=== PATIENT | female | born 1985 ===

== ENCOUNTER 2018-06-16 14:52 | Inpatient (IN) | payer OTHER ==
[2018-06-16] MEDS ORDERED: Sodium Chloride 0.9% 10 ML Syringe FLUSH PRN (15:56)
[2018-06-16] MEDS ORDERED: Ondansetron 4 MG/2 ML SDV IVPUSH PRN ×2 (15:56→18:47)
[2018-06-16] MEDS ORDERED: Nalbuphine 20 MG/ML 1 ML Syringe IVPUSH PRN (15:56)
[2018-06-16] MEDS ORDERED: Oxytocin/Lactated Ringers 10 UNIT/1,000 ML BAG IV SCH ×3 (16:00→16:30)
[2018-06-16] MEDS: Lactated Ringers 1,000 ML IV SCH ×3 (16:22→19:54)
[2018-06-16] MEDS ORDERED: ePHEDrine 50 MG/ML SDV IVPUSH PRN (18:47)
[2018-06-16] MEDS ORDERED: fentaNYL 100 MCG/2 ML SDV EPIDUR PRN (18:47)
--- NOTE | 2018-06-16 18:49 | PCM.PREANE ---
Preanesthetic Assessment - Anesthesia/Transfusion/Family Hx Anesthesia History: No Prior Anesthesia Family History of Anesthesia Reaction: No Transfusion History: No Prior Transfusion(s) Intubation History: Unknown - Review of Systems General: No Symptoms Pulmonary: No Symptoms Cardiovascular: No Symptoms Gastrointestinal: No Symptoms (GERD) Neurological: No Symptoms, Numbness (left hip numbness only with due to pinched nerve.) Other: Reports: None, Diabetes (gestational DM/diet controlled) - Physical Assessment NPO Status Date: 06/16/18 NPO Status Time: 18:00 Pulse: 80 O2 Sat by Pulse Oximetry: 99 Respiratory Rate: 16 Blood Pressure: 109/67 Temperature: 36.4 C Vital Signs: Last Vital Signs Temp 36.4 C 06/16/18 15:56 Pulse 80 06/16/18 15:56 Resp 16 06/16/18 15:56 BP 109/67 06/16/18 15:56 Pulse Ox Height: 1.7 m Weight: 92.079 kg ASA Class: 2 Mental Status: Alert & Oriented x3 Airway Class: Mallampati = 2 Dentition: Reports: Normal Dentition, Caries Thyro-Mental Finger Breadths: 3 Mouth Opening Finger Breadths: 3 Lungs: Clear to Auscultation, Normal Respiratory Effort Cardiovascular: Regular Rate, Regular Rhythm, No Murmurs - Lab Values: Laboratory Last Values WBC 11.44 K/mm3 (3.98-10.04) H 06/16/18 16:20 RBC 4.23 M/mm3 (3.98-5.22) 06/16/18 16:20 Hgb 12.2 gm/L (11.2-15.7) 06/16/18 16:20 Hct 36.8 % (34.1-44.9) 06/16/18 16:20 MCV 87.0 fl (79.4-94.8) 06/16/18 16:20 MCH 28.8 pg (25.6-32.2) 06/16/18 16:20 MCHC 33.2 g/dl (32.2-35.5) 06/16/18 16:20 RDW Std Deviation 44.0 fL (36.4-46.3) 06/16/18 16:20 Plt Count 204 K/mm3 (182-369) 06/16/18 16:20 MPV 10.0 fl (9.4-12.3) 06/16/18 16:20 Labs reviewed and noted and within acceptable ranges to proceed with epidural. 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: - SUBSTANCE USE Smoking Status *Q: Never Smoker Second Hand Smoke Exposure: No Recreational Drug Use History: No - HOME MEDS Home Medications: Home Meds PNV95/Ferrous Fumarate/FA [ Tablet] 1 each PO DAILY 06/16/18 [History] - CURRENT (IN HOUSE) MEDS Current Meds: Current Medications Lactated Ringer's (Ringers, Lactated) 1,000 mls @ 100 mls/hr IV ASDIRECTED DAVE Last Admin: 06/16/18 18:44 Dose: 100 mls/hr Oxytocin/Lactated Ringer's (Pitocin In Lr 10 Units/1,000 Ml) 10 unit in 1,000 mls @ 500 mls/hr IV .CONTINUOUS DAVE; Protocol Oxytocin/Lactated Ringer's (Pitocin In Lr 10 Units/1,000 Ml) 10 unit in 1,000 mls @ 12 mls/hr IV TITRATE DAVE; Protocol Last Titration: 06/16/18 18:02 Dose: 4 munits/min, 24 mls/hr Nalbuphine HCl (Nubain) 10 mg IVPUSH Q2H PRN PRN Reason: pain Ondansetron HCl (Zofran) 4 mg IVPUSH Q4H PRN PRN Reason: Nausea/Vomiting Sodium Chloride (Saline Flush) 10 ml FLUSH ASDIRECTED PRN PRN Reason: Keep Vein Open
[2018-06-16] MEDS ORDERED: Phenylephrine 1 MG in Sodium Chloride 0.9% 10 ML IV SCH (19:00)
[2018-06-16] MEDS ORDERED: Bupivacaine/fentaNYL/NS 100 ML Bag EPIDUR SCH (19:00)
--- NOTE | 2018-06-16 20:39 | PCM.LDHP ---
L&D History of Present Illness - General Date of Service: 06/16/18 Admit Problem/Dx: Admission Diagnosis/Problem Admission Diagnosis/Problem Source of Information: Patient, Old Records History Limitations: Reports: No Limitations - History of Present Illness Introduction:: Eli is a 33 yo female G3 P 2-0-0-2 at 39 weeks 5/7 days gestation is admitted for planned induction this evening of 06/16/18. TARIQ is 06/18/2018 confirmed by ultrasound down on11/25/17 and supported by a second ultrasound done on 2017. Induction was performed this evening by Dr. Araya. Initial encounter was on 11/25/17 at 10 5/7 weeks gestation. Patient began menarche at age 16 that regularly at 28 day intervals. Previous two deliveries are as follow: 1.) A female infant born at 40 weeks gestation via normal spontaneous delivery. Weight was 7lbs 9 oz. Name of infant is Tyron 2.) A female infant born at 40 weeks gestation via normal spontaneous delivery. Weight was 6lbs 12 oz. Name of is Joi course began at 11/25/[address] Araya at 10 5/7 weeks gestation. Patient has gestational diabetes that was well controlled by diet From initial encounter the patient has gained 43 lbs from 160-->203lbs. growth as been appropriate through . Vital signs have been within normal limits through . GBS negative. Blood sugars have been well maintained through . Laboratory testing are as follows: Initial: O- with negative antibody screen. Hgb 13.2, Plts 214,000, Rubella Immune, VDRL/RPR nonreactive, and HBsAg, HIV, chlamydia, gonorrhea are all negative. 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: Social & Family History - Tobacco Use Smoking Status *Q: Never Smoker Second Hand Smoke Exposure: No - Caffeine Use Caffeine Use: Reports: Coffee, Soda - Recreational Drug Use Recreational Drug Use: No H&P Review of Systems - Review of Systems: Review Of Systems: See Below General: Reports: No Symptoms HEENT: Reports: No Symptoms Pulmonary: Reports: No Symptoms Cardiovascular: Reports: No Symptoms Gastrointestinal: Reports: No Symptoms Genitourinary: Reports: No Symptoms Musculoskeletal: Reports: No Symptoms Skin: Reports: No Symptoms L&D Exam - Exam Exam: See Below - Vital Signs Vital Signs: Last Vital Signs Temp 97.5 F 06/16/18 19:00 Pulse 80 06/16/18 19:00 Resp 16 06/16/18 19:00 BP 109/67 06/16/18 19:00 Pulse Ox 99 06/16/18 19:00 Weight: 203 lb - Exam General: Alert, Oriented HEENT: Conjunctiva Clear, EOMI, Hearing Intact Neck: Supple, Trachea Midline Lungs: Clear to Auscultation, Normal Respiratory Effort Cardiovascular: Regular Rate, Regular Rhythm, Normal S1, Normal S2 Genitourinary: Cervical dilitation, Enlarged uterus Back Exam: Normal Inspection, Full Range of Motion Extremities: Normal Inspection, Normal Range of Motion, Non-Tender, No Pedal Edema, Normal Capillary Refill Skin: Warm, Dry, Intact Psychiatric: Alert, Normal Affect, Normal Mood - Patient Data Lab Results Last 24 hrs: Laboratory Results - last 24 hr 06/16/18 Range/Units 16:20 WBC 11.44 H (3.98-10.04) K/mm3 RBC 4.23 (3.98-5.22) M/mm3 Hgb 12.2 (11.2-15.7) gm/L Hct 36.8 (34.1-44.9) % MCV 87.0 (79.4-94.8) fl MCH 28.8 (25.6-32.2) pg MCHC 33.2 (32.2-35.5) g/dl RDW Std Deviation 44.0 (36.4-46.3) fL Plt Count 204 (182-369) K/mm3 MPV 10.0 (9.4-12.3) fl Result Diagrams: 06/16/18 16:20 Problem List Initiated/Reviewed/Updated: Yes Orders Last 24hrs: Active Orders 24 hr Category Date Time Status Activity as Tolerated [RC] PFP Care 06/16/18 15:56 Active Communication Order [RC] ASDIRECTED Care 06/16/18 15:56 Active Heart Tones [RC] ASDIRECTED Care 06/16/18 15:56 Active Non Stress Test [RC] PER UNIT ROUTINE Care 06/16/18 15:56 Active Notify Provider [RC] ASDIRECTED Care 06/16/18 18:47 Active Notify Provider [RC] PFP Care 06/16/18 15:56 Active Notify Provider [RC] PRN Care 06/16/18 15:56 Active Oxygen Therapy [RC] ASDIRECTED Care 06/16/18 18:47 Active Peripheral IV Care [RC] . DIRECTED Care 06/16/18 15:56 Active Pulse Oximetry [RC] ASDIRECTED Care 06/16/18 18:47 Active Urinary Catheter Assessment [RC] ASDIRECTED Care 06/16/18 15:56 Active Vital Signs [RC] PER UNIT ROUTINE Care 06/16/18 15:56 Active Regular Diet [DIET] Diet 06/16/18 Dinner Active RAPID PLASMA REAGIN,RPR [CHEM] Routine Lab 06/16/18 16:20 Received Bupivacaine/fentaNYL/NS [fentaNYL/Bupivacaine/NS 2 MCG- Med 06/16/18 19:00 Active 0.125% 100 ML] 100 ml EPIDUR ASDIRECTED Lactated Ringers [Ringers, Lactated] 1,000 ml Med 06/16/18 16:00 Active IV ASDIRECTED Nalbuphine [Nubain] Med 06/16/18 15:56 Active 10 mg IVPUSH Q2H PRN Ondansetron [Zofran] Med 06/16/18 18:47 Active 4 mg IVPUSH ONETIME PRN Ondansetron [Zofran] Med 06/16/18 15:56 Active 4 mg IVPUSH Q4H PRN Oxytocin/Lactated Ringers [Pitocin in LR 10 Units/1,000 Med 06/16/18 16:00 Active ML] 10 unit in 1,000 ml IV .CONTINUOUS Oxytocin/Lactated Ringers [Pitocin in LR 10 Units/1,000 Med 06/16/18 16:30 Active ML] 10 unit in 1,000 ml IV TITRATE Phenylephrine [Jimbo-Synephrine] 1 mg Med 06/16/18 19:00 Active Sodium Chloride 0.9% [Normal Saline] 10 ml IV TITRATE Sodium Chloride 0.9% [Saline Flush] Med 06/16/18 15:56 Active 10 ml FLUSH ASDIRECTED PRN ePHEDrine [ePHEDrine Sulfate] Med 06/16/18 18:47 Active 5 mg IVPUSH ASDIRECTED PRN fentaNYL [Sublimaze] Med 06/16/18 18:47 Active 100 mcg EPIDUR Q3H PRN Electronic Heart Tones Ext w TOCO [WOMSER] Oth 06/16/18 15:56 Ordered Routine Electronic Heart Tones Internal [WOMSER] Per Unit Oth 06/16/18 15:56 Ordered Routine Peripheral IV Insertion Adult [OM.PC] Routine Oth 06/16/18 15:56 Ordered Resuscitation Status Routine Resus Stat 06/16/18 15:56 Ordered Medication Orders Ephedrine Sulfate (Ephedrine Sulfate) 5 mg IVPUSH ASDIRECTED PRN PRN Reason: Hypotension Fentanyl (Sublimaze) 100 mcg EPIDUR Q3H PRN PRN Reason: Pain Last Admin: 06/16/18 19:01 Dose: 100 mcg Fentanyl/Bupivacaine HCl (Fentanyl/Bupivacaine/Ns 2 Mcg-0.125% 100 Ml) 100 ml EPIDUR ASDIRECTED DAVE Last Admin: 06/16/18 19:01 Dose: 100 ml Lactated Ringer's (Ringers, Lactated) 1,000 mls @ 100 mls/hr IV ASDIRECTED DAVE Last Admin: 06/16/18 19:54 Dose: 100 mls/hr Infusion: 06/16/18 19:54 Dose: 100 mls/hr Admin: 06/16/18 18:44 Dose: 100 mls/hr Infusion: 06/16/18 18:44 Dose: 100 mls/hr Admin: 06/16/18 16:22 Dose: 100 mls/hr Oxytocin/Lactated Ringer's (Pitocin In Lr 10 Units/1,000 Ml) 10 unit in 1,000 mls @ 500 mls/hr IV .CONTINUOUS DAVE; Protocol Oxytocin/Lactated Ringer's (Pitocin In Lr 10 Units/1,000 Ml) 10 unit in 1,000 mls @ 12 mls/hr IV TITRATE DAVE; Protocol Last Titration: 06/16/18 19:54 Dose: 2 munits/min, 12 mls/hr Titration: 06/16/18 18:02 Dose: 4 munits/min, 24 mls/hr Titration: 06/16/18 17:15 Dose: 3 munits/min, 18 mls/hr Admin: 06/16/18 16:21 Dose: 2 munits/min, 12 mls/hr Phenylephrine HCl 1 mg/ Sodium (Chloride) 10.1 mls @ 1 mls/sec IV TITRATE DAVE; Protocol Nalbuphine HCl (Nubain) 10 mg IVPUSH Q2H PRN PRN Reason: pain Ondansetron HCl (Zofran) 4 mg IVPUSH Q4H PRN PRN Reason: Nausea/Vomiting Ondansetron HCl (Zofran) 4 mg IVPUSH ONETIME PRN PRN Reason: Nausea/Vomiting Sodium Chloride (Saline Flush) 10 ml FLUSH ASDIRECTED PRN PRN Reason: Keep Vein Open Assessment/Plan Comment:: Assessment: Patient is a 33 yo female 3 para 2-0-0-2 at 39 5/7 weeks gestation with a history of well controlled gestation diabetes who was admitted for induction of labor. Plan: Induction performed by Dr. Araya Continue to monitor activity Begin Pitocin Epidural has been placed Rhogam after delivery Plans to breast feed
[2018-06-16] MEDS ORDERED: Bupivacaine 0.25% 10 ML SDV ONE (22:00)
--- NOTE | 2018-06-16 22:09 | PCM.SN ---
- Free Text/Narrative Note: Delivery note: Eli is a 33-year-old 3 now para 3003 white female who is admitted for elective induction of labor. TARIQ 06/18/2018 placing her at 39-5/7 weeks gestational age upon admission. She underwent Pitocin induction and then artificial rupture membranes augmentation. She progressed steadily through labor. She had an epidural placed for analgesia. She became complete at approximately 2130 hrs. on 06/16/2018. She pushed essentially 1 contraction and delivered a viable, [place], male with Apgars of 8 and 9, weight of 3660 g (8 pounds 1.1 ounces) in a left occiput anterior position over an intact perineum. Delivery of the baby occurred at 2138 hrs. The patient received Pitocin IV to facilitate increase in uterine tone and decrease likelihood of bleeding. Placenta had a three-vessel cord. It delivered at 2143 hrs. in a [place] presentation, appeared intact and complete and was discarded per patient desire. Estimated blood loss was 100 mL. Patient plans to breast-feed. Condition : Good
[2018-06-17] MEDS ORDERED: Witch Hazel Medicated Pads 100/Jar TOP PRN (00:25)
[2018-06-17] MEDS ORDERED: Benzocaine/Menthol 20%-0.5% Spray 56 GM Canister TOP PRN (00:25)
[2018-06-17] MEDS ORDERED: Acetaminophen 325 MG Tab PO PRN (00:25)
[2018-06-17] MEDS ORDERED: Docusate Sodium 100 MG Cap PO PRN (00:25)
[2018-06-17] MEDS ORDERED: Ibuprofen 600 MG Tab PO PRN (00:25)
[2018-06-17] MEDS ORDERED: Lanolin 100% Cream 7 GM Tube TOP PRN (00:25)
--- NOTE | 2018-06-17 07:39 | PCM48HPAN ---
Post Anesthesia Note - EVALUATION WITHIN 48HRS OF ANESTHETIC Vital Signs in Normal Range: Yes Patient Participated in Evaluation: Yes Respiratory Function Stable: Yes Airway Patent: Yes Cardiovascular Function Stable: Yes Hydration Status Stable: Yes Pain Control Satisfactory: Yes Nausea and Vomiting Control Satisfactory: Yes Mental Status Recovered: Yes (Patient stated best anesthesia ever. She was awesome!) Pulse Rate: 62 Resp Rate: 15 Temperature: 97.9 F Blood Pressure: 106/50
--- NOTE | 2018-06-17 08:23 | PCM.SN ---
- Free Text/Narrative Note: Subjective: Patient reports no acute complaints and is feeling much better. Objective: Some tenderness on abdominal exam. Assessment: 33 yo female who is post day 0. She had a normal spontaneous vaginal delivery and has no complaints Plan: 1.) Pain management with Tylenol and ibuprofen 2.) Routine cares 3.) Plan to discharge tomorrow morning
[2018-06-17] MEDS ORDERED: Prenatal Multivitamin with Calcium/Folic Acid/Iron Tab PO SCH (09:00)
--- NOTE | 2018-06-18 06:48 | PCM.DCSUM1 ---
Discharge Summary - Hospital Course Free Text/Narrative:: Eli is a 33-year-old 3 now para 3003 white female who is admitted for elective induction of labor. TARIQ 06/18/2018 placing her at 39-5/7 weeks gestational age upon admission. She underwent Pitocin induction and then artificial rupture membranes augmentation. She progressed steadily through labor. She had an epidural placed for analgesia. She became complete at approximately 2130 hrs. on 06/16/2018. She pushed essentially 1 contraction and delivered a viable, [place], male infant with Apgars of 8 and 9, weight of 3660 g (8 pounds 1.1 ounces) in a left occiput anterior position over an intact perineum. Delivery of the baby occurred at 2138 hrs. The patient received Pitocin IV to facilitate increase in uterine tone and decrease likelihood of bleeding. Placenta had a three-vessel cord. It delivered at 2143 hrs. in a [place]ve presentation, appeared intact and complete and was discarded per patient desire. Estimated blood loss was 100 mL. Patient plans to breast-feed. patient is under well. She is nursing without problems, and doing well, has minimal pain and is voiding without concerns. She is desiring discharge home. Diagnosis: Stroke: No - Discharge Data Discharge Date: 06/18/18 Discharge Disposition: Home, Self-Care 01 Condition: Good - Patient Instructions Diet: Regular Diet as Tolerated (Nursing diet was increased calories and calcium as recommended) Activity: As Tolerated (No intercourse or tampons until bleeding resolves) Driving: May Drive Today Showering/Bathing: May Shower (May take a bath) Notify Provider of: Fever, Increased Pain, Swelling and Redness, Nausea and/or Vomiting - Discharge Plan Home Medications: Home Meds PNV95/Ferrous Fumarate/FA [ Tablet] 1 each PO DAILY 06/16/18 [History] Acetaminophen [Tylenol] 650 mg PO Q4H PRN tablet 06/18/18 [Rx] Ibuprofen [Motrin] 600 mg PO Q4H PRN tablet 06/18/18 [Rx] - Discharge Summary/Plan Comment DC Time >30 min.: No Discharge Summary/Plan Comment: Discharge instructions: 1. Discharge home 2. Diet, activity and follow-up discussed with patient. Recommend nursing diet with increased calories and calcium. 3. Precautions given concern increased pain, bleeding, temperature, signs/ symptoms of DVT/PE. 4. Medications per home medication was printed, discussed with and given to the patient. 5. Return to clinic-Dr. Araya[facility] in 2 weeks. Diagnosis: Term -delivered Condition: Good - Patient Data Vitals - Most Recent: Last Vital Signs Temp 36.6 C 06/17/18 22:32 Pulse 98 06/17/18 22:32 Resp 16 06/17/18 22:32 BP 118/65 06/17/18 22:32 Pulse Ox 98 06/17/18 22:32 Weight - Most Recent: 92.079 kg I&O - Last 24 hours: Intake & Output 06/17/18 06/17/18 06/18/18 14:59 22:59 06:59 Intake Total 0 0 Balance 0 0 Lab Results - Last 24 hrs: Laboratory Results - last 24 hr 06/16/18 06/17/18 Range/Units 16:20 05:40 RPR Non-reactive (NONREACTIVE) Blood Type O NEGATIVE Gel Antibody Screen Negative Screen 1 ros/5 flds - neg RhIG Candidate? Yes Rhogam Indicated Yes, baby rh unknown H Med Orders - Current: Current Medications Acetaminophen (Tylenol) 650 mg PO Q4H PRN PRN Reason: mild pain or fever Benzocaine/Menthol (Dermoplast Pain Relief [place]) 0 gm TOP ASDIRECTED PRN PRN Reason: Perineal Comfort Measure Docusate Sodium (Colace) 100 mg PO BID PRN PRN Reason: Constipation Emollient Ointment (Lansinoh Hpa) 0 gm TOP ASDIRECTED PRN PRN Reason: Sore Nipples Ibuprofen (Motrin) 600 mg PO Q4H PRN PRN Reason: Mild pain or fever Last Admin: 06/18/18 03:56 Dose: 600 mg Prenat Multivit/Motor Builder Winder/Iron/Folic Ac ( Plus Iron) 1 each PO DAILY DAVE Moreno (Tucks) 1 pad TOP ASDIRECTED PRN PRN Reason: Hemorrhoid pain Discontinued Medications Bupivacaine HCl (Sensorcaine-Mpf 0.25%) 10 ml .ROUTE .STK-MED ONE Stop: 06/16/18 22:01 Ephedrine Sulfate (Ephedrine Sulfate) 5 mg IVPUSH ASDIRECTED PRN PRN Reason: Hypotension Fentanyl (Sublimaze) 100 mcg EPIDUR Q3H PRN PRN Reason: Pain Last Admin: 06/16/18 19:01 Dose: 100 mcg Fentanyl/Bupivacaine HCl (Fentanyl/Bupivacaine/Ns 2 Mcg-0.125% 100 Ml) 100 ml EPIDUR ASDIRECTED DAVE Last Admin: 06/16/18 19:01 Dose: 100 ml Lactated Ringer's (Ringers, Lactated) 1,000 mls @ 100 mls/hr IV ASDIRECTED DAVE Last Admin: 06/16/18 19:54 Dose: 100 mls/hr Oxytocin/Lactated Ringer's (Pitocin In Lr 10 Units/1,000 Ml) 10 unit in 1,000 mls @ 500 mls/hr IV .CONTINUOUS DAVE; Protocol Oxytocin/Lactated Ringer's (Pitocin In Lr 10 Units/1,000 Ml) 10 unit in 1,000 mls @ 12 mls/hr IV TITRATE DAVE; Protocol Last Titration: 06/16/18 19:54 Dose: 2 munits/min, 12 mls/hr Phenylephrine HCl 1 mg/ Sodium (Chloride) 10.1 mls @ 1 mls/sec IV TITRATE DAVE; Protocol Nalbuphine HCl (Nubain) 10 mg IVPUSH Q2H PRN PRN Reason: pain Ondansetron HCl (Zofran) 4 mg IVPUSH Q4H PRN PRN Reason: Nausea/Vomiting Ondansetron HCl (Zofran) 4 mg IVPUSH ONETIME PRN PRN Reason: Nausea/Vomiting Sodium Chloride (Saline Flush) 10 ml FLUSH ASDIRECTED PRN PRN Reason: Keep Vein Open
== END 2018-06-18 10:00 | disposition home or self-care (01) | DRG 807 ==
LOC: JD.OB 14:52 → OBSVTOIN 21:38 → JD.OB 21:39
PROVIDERS: ADMIT Obstetrics & Gynecology; ATTEND Obstetrics & Gynecology
PROC: 10E0XZZ Delivery of Products of Conception, External Approach (ICD-10-PCS; principal; 2018-06-16)
PROC: 10907ZC Drainage of Amniotic Fluid, Therapeutic from Products of Conception, Via Natural or Artificial Opening (ICD-10-PCS; principal; 2018-06-16)
PROC: 3E033VJ Introduction of Other Hormone into Peripheral Vein, Percutaneous Approach (ICD-10-PCS; principal; 2018-06-16)
PROC: 00HU33Z Insertion of Infusion Device into Spinal Canal, Percutaneous Approach (ICD-10-PCS; 2018-06-16)
PROC: 3E0R3BZ Introduction of Anesthetic Agent into Spinal Canal, Percutaneous Approach (ICD-10-PCS; 2018-06-16)
PROC: 3E0234Z Introduction of Serum, Toxoid and Vaccine into Muscle, Percutaneous Approach (ICD-10-PCS; 2018-06-17)
DX: O24.420 Gestational diabetes mellitus in childbirth, diet controlled (principal); Z37.0 Single live birth; Z3A.39 39 weeks gestation of pregnancy; O26.893 Other specified pregnancy related conditions, third trimester; Z67.41 Type O blood, Rh negative
CPT/HCPCS: 36415; 51702; 59025; 59409; 85027; 85461; 86592; 86850; 86900; 86901; A9270-GY; J2590; J2790; J3010; J3490; J7120